=== PATIENT | female | born 1950 | race Caucasian/White ===

== ENCOUNTER 2023-02-03 09:46 | Outpatient (CLI) | payer MEDICARE, BC, SELFPAY | END 2023-02-03 09:47 | disposition home or self-care (01) | PROVIDERS: PCP Internal Medicine; Visit Provider Family Medicine | DX: M54.16 Radiculopathy, lumbar region (principal); M51.36 Other intervertebral disc degeneration, lumbar region | CPT/HCPCS: 64483; J1100; Q9966 ==

== ENCOUNTER 2023-03-03 14:52 | Outpatient (CLI) | payer MEDICARE, BC, SELFPAY | END 2023-03-03 14:53 | disposition home or self-care (01) | PROVIDERS: PCP Internal Medicine; Visit Provider Family Medicine | DX: M17.11 Unilateral primary osteoarthritis, right knee (principal); M25.561 Pain in right knee | CPT/HCPCS: 64454 ==

== ENCOUNTER 2023-07-28 10:59 | Outpatient (CLI) | payer MEDICARE, BC, SELFPAY | END 2023-07-28 11:00 | disposition home or self-care (01) | PROVIDERS: PCP Internal Medicine; Visit Provider Family Medicine | DX: M51.36 Other intervertebral disc degeneration, lumbar region (principal); M54.16 Radiculopathy, lumbar region | CPT/HCPCS: 64483; J1100; Q9966 ==

== ENCOUNTER 2023-09-22 14:18 | Outpatient (CLI) | payer MEDICARE, BC, SELFPAY | END 2023-09-22 14:19 | disposition home or self-care (01) | LOC: INJ CL 14:18 | PROVIDERS: PCP Internal Medicine; Visit Provider Family Medicine | DX: M17.11 Unilateral primary osteoarthritis, right knee (principal); M25.561 Pain in right knee | CPT/HCPCS: 64454 ==

== ENCOUNTER 2023-10-06 12:06 | Outpatient (CLI) | payer MEDICARE, BC, SELFPAY | END 2023-10-06 12:07 | disposition home or self-care (01) | LOC: INJ CL 12:06 | PROVIDERS: PCP Internal Medicine; Visit Provider Family Medicine | DX: M17.11 Unilateral primary osteoarthritis, right knee (principal); M25.561 Pain in right knee | CPT/HCPCS: 64624; J2250; J2405; J3010 ==

== ENCOUNTER 2023-11-10 07:23 | Outpatient (CLI) | payer MEDICARE, BC, SELFPAY | END 2023-11-10 07:24 | disposition home or self-care (01) | LOC: INJ CL 07:24 | PROVIDERS: PCP Internal Medicine; Visit Provider Family Medicine | DX: M47.816 Spondylosis without myelopathy or radiculopathy, lumbar region (principal) | CPT/HCPCS: 64493; 64494; J0702; Q9966 ==

== ENCOUNTER 2024-02-05 13:20 | Outpatient (CLI) | payer MEDICARE, BC, SELFPAY | END 2024-02-05 13:21 | disposition home or self-care (01) | LOC: INJ CL 13:20 | PROVIDERS: PCP Internal Medicine; Visit Provider Family Medicine | DX: M54.16 Radiculopathy, lumbar region (principal); M51.36 Other intervertebral disc degeneration, lumbar region | CPT/HCPCS: 62323; J0702; Q9966 ==

== ENCOUNTER 2024-07-12 08:29 | Outpatient (CLI) | payer MEDICARE, BC, SELFPAY | END 2024-07-12 08:30 | disposition home or self-care (01) | LOC: INJ CL 08:30 | PROVIDERS: PCP Internal Medicine; Visit Provider Family Medicine | DX: M54.16 Radiculopathy, lumbar region (principal); M51.369 Other intervertebral disc degeneration, lumbar region without mention of lumbar back pain or lower extremity pain | CPT/HCPCS: 62323; J0702; Q9966 ==